=== PATIENT | female | born 1995 | race Caucasian/White ===

== ENCOUNTER 2019-11-18 14:52 | Outpatient (CLI) | payer OTHER ==
[~2019-11-18 14:52] MED LIST: Iopamidol 370 76% 100 ML VIAL ONE
--- NOTE | 2019-11-18 15:38 | CT ---
CT PULMONARY ANGIOGRAM WITH IV CONTRAST AND 3D POSTPROCESSING: HISTORY: Dyspnea. FINDINGS: There is good contrast opacification of the pulmonary arterial vasculature without filling defects to suggest pulmonary embolism. The thoracic aorta is well opacified without aneurysm or dissection. N o pleural or pericardial effusions are seen. No pneumothoraces, focal areas of consolidation, lung n odules, or masses are identified. The bony structures are unremarkable. Upper abdominal tomograms d emonstrate no significant abnormalities. IMPRESSION: No CT evidence of pulmonary embolism. POS: [facility]
== END 2019-11-18 14:53 | disposition home or self-care (01) ==
LOC: CT 14:52 → MERGE 14:52 → CT 14:53
PROVIDERS: ATTEND Internal Medicine
DX: R06.00 Dyspnea, unspecified (principal); R06.02 Shortness of breath; R50.9 Fever, unspecified
CPT/HCPCS: 71275; 80053; 84703; 85025; 85379; 86308; 86664; 86665; Q9967